=== PATIENT | female | born 1960 | race Two or more races ===

== ENCOUNTER 2016-07-28 17:36 | Emergency (ER) | payer OTHER ==
[2016-07-28 17:47] VITALS: TEMP 97.9
[2016-07-28 18:16] LABS: % IMMATURE GRANULYOCYTES 0.1 % (0.0-1.1); ABSOLUTE IMMATURE GRANULOCYTES 0.01 10^3/uL (0.00-0.10); ADD DIFF? NO; ADD MORPH? NO; ADD SCAN? NO; ATYPICAL LYMPHOCYTE FLAG 10 (0-99); FRAGMENT RBC FLAG 0 (0-99); HEMATOCRIT 43.2 % (38.0-47.0); LEFT SHIFT FLG 0 (0-99); LIPEMIA HEMOLYSIS FLAG 80 (0-99); MEAN CELL HEMOGLOBIN 27.2 pg (27.9-34.1); MEAN CELL HEMOGLOBIN CONCENTR. 32.4 g/dL (32.4-36.7); MEAN CELL VOLUME 83.9 fL (81.5-99.8); MEAN PLATELET VOLUME 9.2 fL (8.7-11.7); PLATELET CLUMPS FLAG 10 (0-99); PLATELET COUNT 324 10^3/uL (150-400); RED BLOOD CELL COUNT 5.15 10^6/uL (4.18-5.33); RED CELL DISTRIBUTION WIDTH 13.1 % (11.5-15.2)
[2016-07-28 18:16] LABS: COLOR YELLOW; LEUKOCYTE ESTERASE,URINE 1+ (NEGATIVE); NITRITE,URINE NEGATIVE (NEGATIVE)
[2016-07-28 18:19] LABS: BACTERIA TRACE /hpf (NONE SEEN); MUCUS 1+ /lpf (NONE-1+); WBC,URINE 25-50 /hpf (0-3)
[2016-07-28 18:31] LABS: ANION GAP 9 mEq/L (8-16); CALCIUM 9.3 mg/dL (8.5-10.4); CARBON DIOXIDE 26 mEq/l (22-31); CHLORIDE 105 mEq/L (97-110); CREATININE 0.7 mg/dL (0.6-1.0); GLOMERULAR FILTRATION RATE > 60; GLUCOSE 103 mg/dL (70-100); POTASSIUM 4.3 mEq/L (3.5-5.2); SODIUM 140 mEq/L (134-144)
[2016-07-28] MEDS ORDERED: CEPHALEXIN 500MG PREPACK#4 BTL TAKEHOME ONE (19:26)
--- NOTE | 2016-07-28 19:27 | EDPHY ---
H & P Stated Complaint: UTI sxs Source: Patient Exam Limitations: No limitations - Personal History Current Tetanus Diphtheria and Acellular Pertussis (TDAP): Yes - Medical/Surgical History Hx Asthma: No Hx Chronic Respiratory Disease: No Hx Diabetes: No Hx Cardiac Disease: No Hx Renal Disease: No Hx Cirrhosis: No Hx Alcoholism: No Hx HIV/AIDS: No Hx Splenectomy or Spleen Trauma: No Other PMH: UTIs. GB 2003. hysterectomy (partial) - Social History Smoking Status: Never smoked Time Seen by Provider: 07/28/16 18:00 HPI/ROS: CHIEF COMPLAINT: urinary frequency and urgency HISTORY OF PRESENT ILLNESS: 56-year-old female presents emergency department complaining of urinary frequency, urgency and a suprapubic fullness that started this afternoon. Patient denies fevers or chills, no nausea or vomiting. She reports she feels like her low back is just starting to ache. She was treated for urinary tract infection 2 months ago and reports this feels similar. She denies vaginal discharge, no blood in her urine. Normal bowel movements. REVIEW OF SYSTEMS: A comprehensive 10 point review of systems is otherwise negative aside from elements mentioned in the history of present illness. (Fe Medley) - Physical Exam Exam: Physical Exam Gen: Alert and Oriented, NAD HEENT: PERRL, moist mucous membranes NECK: no meningismus CV: regular rate and regular rhythm PULM: CTAB, no wheezes ABDOMEN: Obese, soft, mild suprapubic tenderness to palpation, BS present BACK: No CVA tenderness NEURO: Neurologically grossly intact EXTREMITIES: normal appearing SKIN: no rash or break in skin on exposed skin PSYCH: answers questions appropriately. (Fe Medley) Constitutional: Initial Vital Signs Temperature (C) 36.6 C 07/28/16 17:39 Heart Rate 78 07/28/16 17:39 Respiratory Rate 18 07/28/16 17:39 Blood Pressure 155/95 H 07/28/16 17:39 O2 Sat (%) 96 07/28/16 17:39 O2 Delivery Mode Room Air Allergies/Adverse Reactions: erythromycin base [Erythromycin Base] Allergy (Mild, Verified 07/28/16 17:47) GI Tetracyclines Allergy (Mild, Verified 07/28/16 17:47) GI Home Medications: Medication Instructions Recorded Cephalexin [Keflex] 500 mg PO BID 5 Days 07/28/16 Medical Decision Making ED Course/Re-evaluation: IV established, CBC and chemistry panel obtained showing a normal white blood cell count, normal chemistry panel with normal renal functions. Urinalysis shows 25-50 WBCs. Urine culture is ordered. Patient has no signs or symptoms of pyelonephritis. She will be discharged home with a prepack of Keflex and a prescription for more. Patient agrees to return for any worsening symptoms such as fevers, vomiting. She is comfortable with plan being discharged home. ( Fe Medley) Differential Diagnosis: Diagnosis considered but not limited to urinary tract infection, pyelonephritis , cystitis, STD (Fe Medley) Other Provider: The patient was evaluated and managed by the midlevel provider. My co-signature indicates that I have reviewed this chart and I agree with the findings and plan of care as documented. I am the secondary supervising physician. (Litzy Weber) - Data Points Laboratory Results: Laboratory Results 07/28/16 18:05 07/28/16 18:05 Microbiology Results: MICROBIOLOGY 07/28/16 18:07 Urine,Clean Catch Urine Culture - Preliminary Gram Neg Anup Lactose [employer] Medications Given: Discontinued Medications Cephalexin (Keflex 500 Mg Prepack#4) [facility] Stop: 07/28/16 19:27 Last Admin: 07/28/16 19:31 Dose: 1 btl Departure - Departure Disposition: Home, Routine, Self-Care Clinical Impression: Urinary tract infection Condition: Good Instructions: Cephalexin (By mouth), Urinary Tract Infection in Women (ED) Additional Instructions: Take your antibiotics as prescribed, follow up with your primary care doctor for symptoms that are not improving in the next 2-3 days. Return to the emergency department for worsening symptoms, fevers, vomiting, any other questions or concerns. Referrals: Raul Reinoos DO [Primary Care Provider] - As per Instructions Prescriptions: Cephalexin [Keflex] 500 mg PO BID 5 Days
[2016-07-28 19:43] VITALS: BP 139/91; PULSE 58; RESP 16; O2SAT 97
== END 2016-07-28 19:43 | disposition home or self-care (01) ==
DX: N39.0 Urinary tract infection, site not specified (principal); B96.20 Unspecified Escherichia coli [E. coli] as the cause of diseases classified elsewhere

== ENCOUNTER → 2016-10-01 | Outpatient (CLI) | payer OTHER | LOC: FIMAGING 10:42 | PROVIDERS: ATTEND Specialist | DX: N20.1 Calculus of ureter (principal) ==

== ENCOUNTER → 2016-10-14 | Outpatient (CLI) | payer OTHER | LOC: FIMAGING 09:49 | PROVIDERS: ATTEND Specialist | DX: Z03.89 Encounter for observation for other suspected diseases and conditions ruled out (principal) ==

== ENCOUNTER → 2017-08-29 | Outpatient (CLI) | payer OTHER | LOC: CIMAGING 10:30 | PROVIDERS: ATTEND Internal Medicine Gastroenterology | DX: K76.0 Fatty (change of) liver, not elsewhere classified (principal); Z90.49 Acquired absence of other specified parts of digestive tract | CPT/HCPCS: 76705-PO ==

== ENCOUNTER → 2018-06-29 | Outpatient (CLI) | payer OTHER ==
[~2018-06-29] MED LIST: IOPAMIDOL (ISOVUE-300) 100 ML BTL ONE
== END ==
LOC: CIMAGING 09:25
PROVIDERS: ATTEND Internal Medicine Gastroenterology
DX: R10.12 Left upper quadrant pain (principal)
CPT/HCPCS: 74177-PO; Q9967

== ENCOUNTER → 2018-11-09 | Outpatient (CLI) | payer OTHER | LOC: CIMAGING 14:10 | PROVIDERS: ATTEND Family Medicine | DX: R22.1 Localized swelling, mass and lump, neck (principal) | CPT/HCPCS: 76536-PO ==

== ENCOUNTER → 2018-11-13 | Outpatient (CLI) | payer OTHER | LOC: CIMAGING 13:18 | PROVIDERS: ATTEND Family Medicine | DX: R22.1 Localized swelling, mass and lump, neck (principal) | CPT/HCPCS: 70491-PO; Q9967 ==

== ENCOUNTER → 2018-12-10 | Outpatient (CLI) | payer OTHER | LOC: FIMAGING 12:14 ==